=== PATIENT | female | born 1975 | race Caucasian/White ===

== ENCOUNTER 2017-07-03 19:33 | Emergency (ER) | payer OTHER ==
[~2017-07-03] VITALS: Ht 175.3 cm; Wt 79.9 kg
[~2017-07-03 19:33] MED LIST: ELMIRON100 MG PO; IBUPROFEN800 MG PO; MULTIPLE VITAM1 EACH PO; NEXIUM40 MG PO; NOVAFERRUM 5050 MG PO; PAMELOR10 MG PO; SKELAXIN800 MG PO; STOOL SOFTENER100 M1 PO; TRAMADOL HCL50 MG PO; TYLENOL EXTRA500 MG PO; XANAX1 MG PO; ZYRTEC10 M1 PO; ZYRTEC10 MG PO
[2017-07-03 20:56] LABS: BASOPHIL (%) 0.2 % (0-1); EOSINOPHIL (%) 1.3 % (0-5); EOSINOPHIL COUNT 0.1 K/uL (0-0.3); HEMATOCRIT 37.5 % (36.0-46.0); IMMATURE GRANULOCYTE (%) 0.3 % (0.0-0.7); LYMPHOCYTE COUNT 2.1 K/uL (1.0-2.8); MCH 33.7 PG (29.0-34.0); MCHC 34.7 G/DL (30.0-36.0); MCV 97.2 FL (83-99); MONOCYTE COUNT 0.6 K/uL (0-0.8); NEUTROPHIL (%) 55.2 % (45-76); NEUTROPHIL COUNT 3.4 K/uL (1.8-6.4); PLATELET COUNT 230 K/uL (156-360); RBC DIS.WIDTH-CV 12.3 % (11.8-14.6); RBC DIS.WIDTH-SD 43.8 % (39-53); RED BLOOD COUNT 3.86 M/uL (3.80-5.20); WHITE BLOOD COUNT 6.2 K/uL (4.1-10.2)
[2017-07-03 21:06] LABS: APPEARANCE SL.HAZY ((CLEAR)); BILIRUBIN NEGATIVE; BLOOD NEGATIVE; COLOR YELLOW ((YELLOW)); GLUCOSE (STRIP) NEGATIVE; KETONES 5; LEUKOCYTES NEGATIVE; NITRITE NEGATIVE; PROTEIN (STRIP) NEGATIVE; SPECIFIC GRAVITY 1.013 (1.000-1.030); UROBILINOGEN 0.2 MG/DL (0.2-1.0)
[2017-07-03 21:07] LABS: CHLORIDE 106 mEq/L (99-109); POTASSIUM 3.3 mEq/L (3.7-5.4); SODIUM 141 mEq/L (136-147)
[2017-07-03 21:09] LABS: GLUCOSE 93 mg/dL (70-99); TOTAL PROTEIN 6.7 g/dL (6.4-8.3)
[2017-07-03 21:11] LABS: TOTAL BILIRUBIN 0.3 mg/dL (0.0-1.0)
[2017-07-03 21:12] LABS: ALKALINE PHOSPHATASE 119 IU/L (3-129)
[2017-07-03 21:13] LABS: BACTERIA RARE /HPF; EPITHELIAL CELLS 1+ /HPF; MUCUS 1+ /LPF; RED BLOOD CELLS 0-5 /HPF (0-5); UCUL ADDED? NO; WHITE BLOOD CELLS 0-5 /HPF (0-5)
[2017-07-03 21:13] LABS: CREATININE 0.6 mg/dL (0.6-1.3); GFR ESTIMATE (CALCULATED) > 59 mL/min/
[2017-07-03 21:14] LABS: AST (GOT) 25 IU/L (2-34); UREA NITROGEN (BUN) 10 mg/dL (9-23)
[2017-07-03 21:15] LABS: ALT (GPT) 26 IU/L (3-49)
[2017-07-03 21:16] LABS: LIPASE 5 U/L (1.0-51.0)
[2017-07-03 21:22] LABS: QUANTITATIVE HCG < 4.0 MIU/ML
[2017-07-03] MEDS ORDERED: ULTRAM50 MG PO (21:40)
[2017-07-03] MEDS ORDERED: MOTRIN600 MG PO (21:40)
[2017-07-03 23:35] VITALS: BP 134/85
== END 2017-07-03 23:40 | disposition home or self-care (01) ==
LOC: EME 19:33
PROVIDERS: Emergency Medicine
DX: R10.12 Left upper quadrant pain (principal); K21.9 Gastro-esophageal reflux disease without esophagitis; K31.84 Gastroparesis; Z90.710 Acquired absence of both cervix and uterus; Z88.0 Allergy status to penicillin
CPT/HCPCS: 71046; 74176; 80053; 81003; 83690; 84702; 85025; 99281; 99285